=== PATIENT | female | born 1980 | race Two or more races ===

== ENCOUNTER 2018-08-14 22:05 | Observation (INO) | payer MEDICAID ==
[~2018-08-14] VITALS: Ht 157.5 cm; Wt 67.1 kg
[2018-08-14] MEDS ORDERED: PREN1TAB80 PO (23:42)
[2018-08-14] MEDS ORDERED: ACET-66 PO (23:43)
[2018-08-15] MEDS ORDERED: OxyCODONE HCL 10 MG ER TABLET PO ONE
[2018-08-15 00:23] LABS: BASOPHILS % (AUTO) 0.8 % (0.0-2.0); EOSINOPHILS % (AUTO) 1.2 % (1.0-6.0); HEMATOCRIT 35.5 % (36-46); HEMOGLOBIN 11.8 g/dL (12.0-16.0); LYMPHOCYTES # (AUTO) 0.9 K/uL (1.0-4.8); LYMPHOCYTES % (AUTO) 13.1 % (22.0-44.0); MEAN CORPUSCULAR HEMOGLOBIN 29.5 pg (26.0-34.0); MEAN CORPUSCULAR HGB CONC 33.4 G/dL (31.0-37.0); MEAN CORPUSCULAR VOLUME 89 fL (80-100); MONOCYTES # (AUTO) 0.5 K/uL (0.1-1.0); MONOCYTES % (AUTO) 7.9 % (2.0-9.0); NEUTROPHILS # (AUTO) 5.2 K/uL (1.8-7.7); PLATELET COUNT (AUTO)-OB 108 K/uL (150-450); RED BLOOD CELL COUNT(AUTO) 4.01 MIL/uL (4.00-5.20)
[2018-08-15 00:26] LABS: ANION GAP 5 mmol/L (8-16); CALCIUM, TOTAL 8.2 mg/dL (8.8-10.5); CARBON DIOXIDE 24 mmol/L (22-29); CHLORIDE 105 mmol/L (98-107); CREATININE 0.48 mg/dL (0.60-1.30); GLOMERULAR FILTR. RATE CALC > 60 mL/min (>60); GLUCOSE,RANDOM 93 mg/dL (70-110); POTASSIUM 3.7 mmol/L (3.5-5.1); SODIUM SERUM 134 mmol/L (136-145); UREA NITROGEN, BLOOD 4 mg/dL (7-18)
[2018-08-15 00:29] VITALS: BP 114/65
[2018-08-15 00:32] LABS: ALANINE AMINOTRANSFERASE 154 U/L (12-78); ALBUMIN 2.4 g/dL (3.4-5.0); ALKALINE PHOSPHATASE 171 U/L (46-116); AMYLASE 33 U/L (25-115); ASPARTATE AMINOTRANSFERASE 92 U/L (15-37); BILIRUBIN,TOTAL 3.3 mg/dL (0.1-1.0); LIPASE 99 U/L (73-393); TOTAL PROTEIN, SERUM 6.1 g/dL (6.4-8.2)
== END 2018-08-15 00:33 | disposition home or self-care (01) ==
LOC: 4S 22:05
PROVIDERS: ADMIT Obstetrics & Gynecology; ATTEND Obstetrics & Gynecology
DX: O26.893 Other specified pregnancy related conditions, third trimester (principal); R10.9 Unspecified abdominal pain; O99.89 Other specified diseases and conditions complicating pregnancy, childbirth and the puerperium; M54.9 Dorsalgia, unspecified; Z87.19 Personal history of other diseases of the digestive system; Z3A.34 34 weeks gestation of pregnancy
CPT/HCPCS: 36415; 80053; 81002; 82150; 83690; 85025; G0378

== ENCOUNTER 2018-08-15 01:07 | Emergency (ER) | payer MEDICAID ==
[~2018-08-15] VITALS: Ht 154.9 cm; Wt 67.3 kg
[~2018-08-15 01:07] MED LIST: ACET-66 PO; PREN1TAB80 PO
[2018-08-15 01:25] VITALS: BP 110/66
== END 2018-08-15 02:20 | disposition left against medical advice (07) ==
LOC: EMS 01:09
DX: R10.9 Unspecified abdominal pain (principal); Z53.21 Procedure and treatment not carried out due to patient leaving prior to being seen by health care provider

== ENCOUNTER 2018-10-09 22:14 | Emergency (ER) | payer MEDICAID ==
[~2018-10-09] VITALS: Ht 152.4 cm; Wt 57.7 kg
[2018-10-10] MEDS ORDERED: ACETAMINOPHEN 500 MG TABLET PO ONE (01:15)
[2018-10-10] MEDS ORDERED: IBUPROFEN 600 MG TABLET PO ONE (01:15)
[2018-10-10 03:16] VITALS: BP 124/81
== END 2018-10-10 03:19 | disposition home or self-care (01) ==
LOC: EMS 22:15
DX: S29.012A Strain of muscle and tendon of back wall of thorax, initial encounter (principal); Z88.0 Allergy status to penicillin; V43.62XA Car passenger injured in collision with other type car in traffic accident, initial encounter; Y93.89 Activity, other specified; Y92.411 Interstate highway as the place of occurrence of the external cause; Y99.8 Other external cause status
CPT/HCPCS: 72040; 72070